=== PATIENT | male | born 1995 | race Caucasian/White ===

== ENCOUNTER 2019-04-13 14:39 | Emergency (ER) | payer BC, OTHER ==
[~2019-04-13] VITALS: Ht 193 cm; Wt 97.5 kg
[2019-04-13 16:30] VITALS: BP 119/67
== END 2019-04-13 16:48 | disposition home or self-care (01) ==
LOC: ER 14:39
DX: S01.511A Laceration without foreign body of lip, initial encounter (principal); W27.0XXA Contact with workbench tool, initial encounter; Y93.89 Activity, other specified; Y92.89 Other specified places as the place of occurrence of the external cause; Y99.8 Other external cause status